=== PATIENT | male | born 1970 | race Caucasian/White ===

== ENCOUNTER 2023-04-20 12:18 | Emergency (ER) | payer OTHER, SELFPAY ==
[2023-04-20 12:19] VITALS: BP 139/95; PULSE 63; RESP 16; TEMP 36.6; O2SAT 100; BMI 23.3
--- NOTE | 2023-04-20 12:34 | EDS_ITS ---
HPI <JOYCE Gilmore - Last Filed: 04/20/23 15:36> History of Present Illness Chief Complaint: Cellulitis Narrative Narrative: Patient presenting today with concerns that he has cellulitis in his right index finger. He reports that last night he started to notice that it was slightly swollen and red, this morning he woke up and noticed lymphatic streaking up his right arm, towards his elbow. He went to urgent care this morning and they encouraged him to come here. He denies a history of diabetes or any immunocompromising conditions. He denies any fever, chills, abdominal pain, nausea, vomiting PFSH <JOYCE Gilmore - Last Filed: 04/20/23 15:36> [facility] Medical History no medical history Home Medications cephalexin 500 mg capsule 500 mg PO Q6 7 days #28 CAPSULES 04/20/23 [Rx Last T aken Unknown] Allergy/AdvReac Type Severity Reaction Status Date / Time No Known Allergies Allergy Verified 04/20/23 12:20 Social History Smoking Status: Never smoker ROS <JOYCE Gilmore - Last Filed: 04/20/23 15:36> ROS ED Constitutional Constitutional ED: Denies chills or fever(s) Cardiovascular Cardiovascular: Denies chest pain Respiratory/Chest Respiratory/Chest: Denies cough or dyspnea Gastrointestinal Gastrointestinal: Denies abdominal pain, nausea or vomiting Musculoskeletal Musculoskeletal: Denies arthralgias or myalgias Integumentary Denies abscess, Abrasions or rash Neurologic Neurologic: Denies paresthesias or weakness EXAM <JOYCE Gilmore Last Filed: 04/20/23 15:36> Physical Exam Const Vital Signs: 04/20/23 12:19 04/20/23 14:06 Temperature 98 F Temperature Source Temporal Pulse Rate 63 Respiratory Rate 16 16 Blood Pressure 139/95 H 150/90 H Blood Pressure Mean 109 Pulse Ox 100 Oxygen Delivery Method Room Air Positive well nourished, well developed and no apparent distress General Appearance ED: well developed HEENT Reports normocephalic and head/scalp atraumatic Mouth ED: Yes moist mucous membranes normal Eyes PERRL and EOMs intact bilaterally Neck full ROM and supple Chest Wall inspection of chest normal Resp normal respiratory effort and clear to auscultation bilaterally Cardio regular rate and regular rhythm GI soft to palpation, non-tender, non-distended and no masses Back/Spine normal ROM and normal to inspection Extremity normal to inspection and full ROM Neuro oriented x3, CN's II-XII intact bilaterally, moves all extremities, no focal motor deficits and no sensory deficits noted Sensorium / Orientation: awake and alert Psych mental status grossly normal and thought process normal Skin no rashes or lesions noted and no wounds Skin Narrative: Right index finger erythemic and slightly edematous with a blistering wound on the dorsal aspect near the nailbed, small blood blister to the medial aspect of the finger near the PIP joint,lymphangitic streaking up the right arm that ends at the elbow. <Dr. Richard Morales MD - Last Filed: 04/20/23 13:38> Physical Exam Const Vital Signs: 04/20/23 12:19 04/20/23 14:06 Temperature 98 F Temperature Source Temporal Pulse Rate 63 Respiratory Rate 16 16 Blood Pressure 139/95 H 150/90 H Blood Pressure Mean 109 Pulse Ox 100 Oxygen Delivery Method Room Air MDM <JOYCE Gilmore - Last Filed: 04/20/23 15:36> MDM MDM Narrative Medical decision making narrative: Patient presenting with concerns for cellulitis to his right index finger. Yesterday he began to notice slight erythema and edema to the finger that worsened this morning when he woke up and he noticed lymphangitic streaking. CBC obtained to rule out leukocytosis and is unremarkable. Patient was given a dose of Unasyn here and will be discharged home on Keflex. He is afebrile here, well-appearing and in no acute distress. He will be discharged home in stable condition and is comfortable with plan Lab Data Labs: Laboratory Results - last 24 hr 04/20/23 12:55 WBC 7.7 RBC 4.46 L Hgb 14.1 Hct 42.3 MCV 94.8 H MCH 31.6 MCHC 33.3 RDW Std Deviation 41.2 RDW Coeff of Jeronimo 11.8 Plt Count 279 MPV 10.3 Immature Gran % (Auto) 0.100 Neut % (Auto) 66.3 Lymph % (Auto) 18.2 L [place] % (Auto) 13.2 H Eos % (Auto) 1.8 Baso % (Auto) 0.4 Absolute Neuts (auto) 5.1 Absolute Lymphs (auto) 1.40 Nucleated RBC % 0 <Dr. Richrad Morales MD - Last Filed: 04/20/23 13:38> [facility] Lab Data Attestation: I reviewed the patient's lab results. Labs: Laboratory Results - last 24 hr 04/20/23 12:55 WBC 7.7 RBC 4.46 L Hgb 14.1 Hct 42.3 MCV 94.8 H MCH 31.6 MCHC 33.3 RDW Std Deviation 41.2 RDW Coeff of [place] 11.8 Plt Count 279 MPV 10.3 Immature Gran % (Auto) 0.100 Neut % (Auto) 66.3 Lymph % (Auto) 18.2 L [place] % (Auto) 13.2 H Eos % (Auto) 1.8 Baso % (Auto) 0.4 Absolute Neuts (auto) 5.1 Absolute Lymphs (auto) 1.40 Nucleated RBC % 0 Treatment and Re-Evaluation Comments:: Seen and evaluated independently and in conjunction with physician assistant professor of archaeology. Agree with notes above unless documented otherwise. Spontaneous pain, swelling, with a couple of water-filled blisters and a blood blister distal aspect of his right index finger, this started yesterday spontaneously. No foreign bodies or injury recently although he had something similar happen in August and has bothered him off and on mildly since then. He denies biting his nails or any other potential reason for this that is obvious to him. He denies any fevers or chills but today, he noticed a red streak going up his forearm toward his elbow. He went to urgent care and was redirected here to the ER. Exam: Well-appearing no distress, tender paronychial area on both sides of the nail dorsally right index finger distal phalanx, there are a couple of small vesicles, and 1 blood-filled blister at the ulnar aspect of the fingertip, the finger pad is not distended or severely tender, and the paronychial areas are not fluctuant and do not appear that they would yield pus if opened. Full range of motion of the finger without difficulty. There is mildly tender lymphangitic streaking all the way up the forearm to the elbow area. I do not think there is need for an x-ray since he did not have an injury or a foreign body and he had an x-ray at 1 point in the past that he states was negative. CBC negative/unremarkable, we did a blood culture give him a dose of IV Unasyn will discharge on Keflex. Close outpatient orthopedic follow-up. Discharge Plan Triage Chief Complaint: Cellulitis ED Midlevel Provider: Regina Bruno ED Provider: Richard Morales Dx/Rx/DC Orders Clinical Impression: Finger infection, Cellulitis with lymphangitis Instructions: Cellulitis Dc Prescriptions: New cephalexin 500 mg capsule 500 mg PO Q6 7 Days Qty: 28 0RF Primary Care Provider: Rosas Diamond Referrals: Rosas Diamond MD [Primary Care Provider] - Herberth Kenny MD [Med Staff - Active Staff] - 3-5 Days Activity Restrictions/Additional Instructions: Please follow-up with your PCP and the orthopedic provider I have referred you to. Take antibiotic as directed and return for any worsening of your symptoms Disposition Disposition: Home, Self Care Discharge Date/Time: 04/20/23 14:07
[2023-04-20 13:05] LABS: Absolute Neutrophil Count 5.1 X10^3/uL (2.0-7.7); Basophil# 0.03 X10^3/uL; Basophil% 0.4 % (0-1); Eosinophil# 0.14 X10^3/uL; Eosinophils% 1.8 % (0-5); Hematocrit 42.3 % (40-54); Hemoglobin 14.1 g/dL (13.0-16.5); Lymphocyte % 18.2 % (19-41); Mean Corp Hgb Conc 33.3 g/dL (32-36); Mean Corpuscular Hgb 31.6 pg (27.0-32.0); Mean Corpuscular Volume 94.8 fL (80-94); Mean Platelet Vol. 10.3 fl (6.2-12.0); Monocyte# 1.01 X10^3/uL; Monocyte% 13.2 % (0-10); NRBC Flagged by Analyzer 0 % (0-5); Neutrophil # 5.09 X10^3/uL (2.7-7.7); Neutrophil % 66.3 % (47-70); Platelet Count 279 K/mm3 (150-450); RBC Distribution Width CV 11.8 % (11.6-14.6); RBC Distribution Width SD 41.2 fl (35.1-43.9); Red Blood Count 4.46 M/mm3 (4.6-6.2); White Blood Count 7.7 K/mm3 (4.4-11.0)
[2023-04-20 14:06] VITALS: BP 150/90; RESP 16
== END 2023-04-20 14:07 | disposition home or self-care (01) ==
PROVIDERS: Physician Assistant; Emergency Provider Emergency Medicine; PCP Family Medicine; Visit Provider Emergency Medicine
DX: L03.011 Cellulitis of right finger (principal); L03.021 Acute lymphangitis of right finger
CPT/HCPCS: 36415; 85025; 87040; 96365; 99283; J7050; A4216; J0295